=== PATIENT | male | born 1990 | race Caucasian/White ===

== ENCOUNTER 2019-02-11 17:56 | Emergency (ER) | payer SELFPAY ==
--- NOTE | 2019-02-11 18:06 | ER Document Report ---
ED Medical Screen (RME) - General Chief Complaint: Vomiting Stated Complaint: VOMITING Time Seen by Provider: 02/11/19 18:04 Information source: Patient Notes: Patient presents as he has had yellowing of the eyes for the past 3 days. Patient states that he recently has had really dark urine but suspected that he was dehydrated. Patient states that he drank a lot of Pedialyte and now his urine looks normal. Patient states that he is also had vomiting every day for the past 6 weeks only after eating lunch each day. Patient otherwise denies any abdominal pain or fever. Patient denies any nausea at this time. I have greeted and performed a rapid initial assessment of this patient. A comprehensive ED assessment and evaluation of the patient, analysis of test results and completion of the medical decision making process will be conducted by additional ED providers. Physical Exam - General General appearance: Appears well, Alert Notes: Sclera icteric
--- NOTE | 2019-02-11 18:33 | ER Document Report ---
ED General - General Chief Complaint: Eye Problem Stated Complaint: VOMITING Time Seen by Provider: 02/11/19 18:04 Notes: Patient is a 28-year-old male with no significant past medical history that presents to the emergency department for chief complaint of yellowing of his eyes. Patient reports that over the past 3 days his friends and family noticed that his eyes are more yellow than usual. He has no history of liver disease. He does state he has been having nausea and vomiting every day at lunch for the past 6 weeks, without any particular explanation, he denies having any nausea or vomiting at this time. He states he is also had a few episodes of vomiting particularly was out working in the sun. He also noted his urine was darker over the past couple days but he is been drinking more Pedialyte and his urine is yellow now. He denies any abdominal pain or swelling, denies any itching or noticing jaundice of the skin. No other complaints at this time. Past Medical History: Denies chronic medical conditions Past Surgical History: Denies recent or pertinent surgical history Social History: Denies tobacco, alcohol or drug use. Family History: Reviewed and noncontributory for presenting illness Allergies: Reviewed, see documented allergy list. REVIEW OF SYSTEMS: Other than noted above, the 12 point review of systems was reviewed with the patient and were negative, all pertinent findings are included in the HPI. PHYSICAL EXAMINATION: Vital signs reviewed, nursing noted reviewed. GENERAL: Well-appearing, well-nourished and in no acute distress. HEAD: Atraumatic, normocephalic. EYES: Eyes appear normal, extraocular movements intact, mild scleral icterus noted, conjunctiva are normal. ENT: nares patent, oropharynx clear without exudates. Moist mucous membranes. NECK: Normal range of motion, supple without lymphadenopathy LUNGS: Breath sounds clear to auscultation bilaterally and equal. No wheezes rales or rhonchi. HEART: Regular rate and rhythm without murmurs ABDOMEN: Soft, nontender, normoactive bowel sounds. No rebound, guarding, or rigidity. No masses appreciated. No hepatosplenomegaly on exam. EXTREMITIES: Nontender, good range of motion, no pitting or edema. NEUROLOGICAL: No focal neurological deficits. Moves all extremities spontaneously Motor and sensory grossly intact on exam. PSYCH: Normal mood, normal affect. SKIN: Warm, Dry, normal turgor, no rashes or lesions noted on exposed skin, no jaundice. Past Medical History - General Information source: Patient - Social History Smoking Status: Former Smoker Chew tobacco use (# tins/day): Yes Frequency of alcohol use: Social Drug Abuse: None Family History: Reviewed & Not Pertinent Patient has suicidal ideation: No Patient has homicidal ideation: No Physical Exam - Vital signs Vitals: Temp Pulse Resp BP Pulse Ox 98.2 F 73 16 134/80 H 98 02/11/19 18:01 02/11/19 18:01 02/11/19 18:01 02/11/19 18:01 02/11/19 18:01 Course - Re-evaluation Re-evalutation: Patient seen and examined vital signs reviewed. Laboratory data and/or imaging were ordered as appropriate for the patient's presenting symptoms and complaint, with consideration of any critical or life threatening conditions that may be associated with their obtained history and exam as noted above. Patient was treated with IV fluids Results were reviewed when available and demonstrated isolated hyperbilirubinemia of just over 4. Other LFTs are normal, liver ultrasound ordered and hepatitis panel were sent off. 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 Liver ultrasound was negative for any evidence of fatty liver disease, or obstruction. Results were discussed with the patient at this point, after careful consideration I feel that that patient can be discharged from the emergency department, the patient was educated treatments and reasons to return to the emergency department based on their presumed diagnosis as noted above, they were advised to followup with a primary care physician in 2-3 days. Patient was agreeable to plan of care. *Note is created using voice recognition software and may contain spelling, syntax or grammatical errors. Laboratory 02/11/19 02/11/19 02/11/19 18:22 18:57 18:57 WBC 8.6 RBC 5.09 Hgb 15.4 Hct 45.0 MCV 88 MCH 30.2 MCHC 34.2 RDW 13.1 Plt Count 267 Lymph % (Auto) 28.3 [place] % (Auto) 6.8 Eos % (Auto) 1.0 Baso % (Auto) 0.7 Absolute Neuts (auto) 5.5 Absolute Lymphs (auto) 2.4 Absolute Monos (auto) 0.6 Absolute Eos (auto) 0.1 Absolute Basos (auto) 0.1 Seg Neutrophils % 63.2 PT INR APTT Sodium 139.8 Potassium 3.9 Chloride 101 Carbon Dioxide 27 Anion Gap 12 BUN 15 Creatinine 0.96 Est GFR ( Amer) > 60 Est GFR (MDRD) Non-Af > 60 Glucose 70 L Calcium 9.9 Total Bilirubin 4.8 H Direct Bilirubin 0.1 Neonat Total Bilirubin Not Reportable Neonat Direct Bilirubin Not Reportable Neonat Indirect Bili Not Reportable AST 27 ALT 34 Alkaline Phosphatase 52 Total Protein 7.8 Albumin 4.9 Lipase 141.8 Urine Color YELLOW Urine Appearance CLEAR Urine pH 6.0 Ur Specific [place] 1.020 Urine Protein NEGATIVE Urine Glucose (UA) NEGATIVE Urine Ketones TRACE H Urine Blood NEGATIVE Urine Nitrite NEGATIVE Urine Bilirubin NEGATIVE Urine Urobilinogen 2.0 H Ur Leukocyte Esterase NEGATIVE Urine WBC (Auto) 0 Urine RBC (Auto) 2 Urine Mucus (Auto) OCC Urine Ascorbic Acid NEGATIVE 02/11/19 18:57 WBC RBC Hgb Hct MCV MCH MCHC RDW Plt Count Lymph % (Auto) [place] % (Auto) Eos % (Auto) Baso % (Auto) Absolute Neuts (auto) Absolute Lymphs (auto) Absolute Monos (auto) Absolute Eos (auto) Absolute Basos (auto) Seg Neutrophils % PT 12.4 INR 0.92 APTT 28.1 Sodium Potassium Chloride Carbon Dioxide Anion Gap BUN Creatinine Est GFR ( Amer) Est GFR (MDRD) Non-Af Glucose Calcium Total Bilirubin Direct Bilirubin Neonat Total Bilirubin Neonat Direct Bilirubin Neonat Indirect Bili AST ALT Alkaline Phosphatase Total Protein Albumin Lipase Urine Color Urine Appearance Urine pH Ur Specific [place] Urine Protein Urine Glucose (UA) Urine Ketones Urine Blood Urine Nitrite Urine Bilirubin Urine Urobilinogen Ur Leukocyte Esterase Urine WBC (Auto) Urine RBC (Auto) Urine Mucus (Auto) Urine Ascorbic Acid Abdomen Ultrasound 02/11/19 19:32 IMPRESSION: No sonographic abnormality. copyright 2011 [employer]- All Rights Reserved - Vital Signs Vital signs: Temp Pulse Resp BP Pulse Ox 98.2 F 73 16 134/80 H 98 02/11/19 18:01 02/11/19 18:01 02/11/19 18:01 02/11/19 18:01 02/11/19 18:01 - Laboratory Result Diagrams: 02/11/19 18:57 02/11/19 18:57 Laboratory results interpreted by me: 02/11/19 02/11/19 18:22 18:57 Glucose 70 L Total Bilirubin 4.8 H Urine Ketones TRACE H Urine Urobilinogen 2.0 H Discharge - Discharge Clinical Impression: Hyperbilirubinemia Condition: Stable Disposition: HOME, SELF-CARE Additional Instructions: Your one blood test called a bilirubin was elevated today which can cause yellowing of the eyes, your work-up otherwise was negative, you may have a condition called Gilbert syndrome, we did send off hepatitis testing, which if it is positive we will follow-up on. If you have any worsening symptoms such as pain in your right side, worsening vomiting, please return to the emergency department to be reevaluated. Referrals: ZELDA OLEARY MD [ACTIVE STAFF] - Follow up in 3-5 days (primary care ) TESSA ROSAS MD [ACTIVE STAFF] - Follow up in 3-5 days (GI specialist )
[2019-02-11 19:07] LABS: ABSOLUTE BASOPHILS # (AUTO) 0.1 10^3/uL (0.0-0.2); ABSOLUTE EOSINOPHILS # (AUTO) 0.1 10^3/uL (0.0-0.6); ABSOLUTE LYMPHOCYTES (AUTO) 2.4 10^3/uL (0.5-4.7); ABSOLUTE MONOCYTES (AUTO) 0.6 10^3/uL (0.1-1.4); ABSOLUTE NEUT (AUTO) 5.5 10^3/uL (1.7-8.2); BASOPHILS % (AUTO) 0.7 % (0-2); HEMOGLOBIN 15.4 g/dL (13.5-17.0); LYMPHOCYTES % (AUTO) 28.3 % (13-45); MEAN CORPUSCULAR HEMOGLOBIN 30.2 pg (27.0-33.4); MEAN CORPUSCULAR HGB CONC 34.2 g/dL (32.0-36.0); MEAN CORPUSCULAR VOLUME 88 fl (80-97); MONOCYTES % (AUTO) 6.8 % (3-13); PLATELET COUNT 267 10^3/uL (150-450); RED BLOOD COUNT 5.09 10^6/uL (4.35-5.55); RED CELL DISTRIBUTION WIDTH 13.1 % (11.5-14.0); SEGMENTED NEUTROPHILS % (AUTO) 63.2 % (42-78); TOTAL CELLS COUNTED % (AUTO) 100 %; WHITE BLOOD COUNT 8.6 10^3/uL (4.0-10.5)
[2019-02-11 19:08] LABS: APPEARANCE,URINE CLEAR; BILIRUBIN,URINE NEGATIVE (NEGATIVE); COLOR,URINE YELLOW; GLUCOSE, URINE NEGATIVE (NEGATIVE); KETONES,URINE TRACE mg/dL (NEGATIVE); LEUKOCYTE ESTERASE,URINE NEGATIVE (NEGATIVE); NITRITE,URINE NEGATIVE (NEGATIVE); PROTEIN,URINE NEGATIVE (NEGATIVE)
[2019-02-11 19:13] LABS: INTERNATIONAL RATION (INR) 0.92; PROTHROMBIN TIME 12.4 SEC (11.4-15.4)
[2019-02-11] MEDS ORDERED: NORMAL SALINE 1000 ML 1,000 ML IV ONE (19:13)
[2019-02-11 19:14] LABS: PARTIAL THROMBOPLASTIN TIME 28.1 SEC (23.5-35.8)
[2019-02-11 19:28] LABS: ALBUMIN 4.9 g/dL (3.5-5.0); ALKALINE PHOSPHATASE 52 U/L (38-126); ANION GAP 12 (5-19); ASPARTATE AMINO TRANSFERASE 27 U/L (17-59); BILIRUBIN,DIRECT 0.1 mg/dL (0.0-0.4); BILIRUBIN,TOTAL 4.8 mg/dL (0.2-1.3); BLOOD UREA NITROGEN 15 mg/dL (7-20); CALCIUM 9.9 mg/dL (8.4-10.2); CARBON DIOXIDE 27 mmol/L (22-30); CHLORIDE 101 mmol/L (98-107); GLUCOSE 70 mg/dL (75-110); POTASSIUM 3.9 mmol/L (3.6-5.0); TOTAL PROTEIN 7.8 g/dL (6.3-8.2)
--- NOTE | 2019-02-11 20:56 | RADIOLOGY REPORT (SQ) ---
EXAM DESCRIPTION: US ABDOMEN LIMITED COMPLETED DATE/TME: 02/11/2019 19:32 CLINICAL HISTORY: 28 years, Male, vomiting, elevated bilirubin COMPARISON: None. TECHNIQUE: LIMITATIONS: None. FINDINGS: No gallstones. The radiology technologist reported a negative sonographic Yuen sign. No evidence of biliary tree dilatation. The liver, pancreas and right kidney are unremarkable. The abdominal aorta is normal in caliber. IMPRESSION: No sonographic abnormality. copyright 2010 [employer]- All Rights Reserved
[2019-02-11] MEDS ORDERED: ONDANSETRON ODT 4 MG TAB (6 TAB/ER DISP) PO PRN (21:13)
[2019-02-11 21:30] VITALS: BP 125/81
[2019-02-13 08:37] LABS: HEPATITS B SURFACE ANTIGEN Negative (Negative)
[2019-02-13 09:25] LABS: HEPATITIS C VIRUS ANTIBODY <0.1 s/co ratio (0.0-0.9)
== END 2019-02-11 21:31 | disposition home or self-care (01) ==
LOC: ER 17:56
DX: E80.6 Other disorders of bilirubin metabolism (principal); H57.9 Unspecified disorder of eye and adnexa; R11.2 Nausea with vomiting, unspecified
CPT/HCPCS: 99284; 96360; 36415; 83690; 85025; 85610; 85730; 80053; 81001; 80074; 76705; J7030

== ENCOUNTER 2019-07-26 08:10 | Emergency (ER) | payer SELFPAY ==
--- NOTE | 2019-07-26 08:23 | ER Document Report ---
ED General - General Chief Complaint: Flank Pain Stated Complaint: RIGHT FLANK PAIN Time Seen by Provider: 07/26/19 08:23 Primary Care Provider: ZELDA OLEARY MD [ACTIVE STAFF] - Follow up as needed Juan PIRES MD [ACTIVE STAFF] - Follow up as needed - HPI Notes: 29-year-old male with a history of nephrolithiasis and renal syndrome presents emergency room for complaints of right flank pain that started at 8 PM yesterday. Patient states pain comes and goes on the right flank area without radiation. Does report vomiting and nausea but denies any diarrhea. reports he has had 2 other recurrences of kidney stones, states the last time was on his left. Is never been seen by a PCP or book cleaner for this issue. Denies ever requiring surgery. Is not taking any [id number] medications. Denies fevers, chills, chest pain,palpitations, shortness of breath, dyspnea, abdominal pain, hematuria,blurred vision, double vision, loss of vision, speech changes, LH, dizziness, syncope, headaches, wheezing, ST, URI, neck pain, weakness, bowel or bladder dysfunction, saddle anesthesia, numbness or tingling in bilateral upper or lower extremities equally, muscle paralysis, weakness in bilateral upper or lower extremities equally or rash. Past Medical History - General Information source: Patient - Social History Smoking Status: Unknown if Ever Smoked Family History: Reviewed & Not Pertinent Review of Systems - Review of Systems Constitutional: No symptoms reported EENT: No symptoms reported Cardiovascular: No symptoms reported Respiratory: No symptoms reported Gastrointestinal: See HPI Genitourinary: No symptoms reported Male Genitourinary: No symptoms reported Musculoskeletal: No symptoms reported Skin: No symptoms reported Hematologic/Lymphatic: No symptoms reported Neurological/Psychological: No symptoms reported Physical Exam - Vital signs Vitals: Temp Pulse Resp BP Pulse Ox 98.1 F 55 L 16 144/67 H 100 07/26/19 08:14 07/26/19 08:14 07/26/19 08:14 07/26/19 08:14 07/26/19 08:14 - Notes Notes: PHYSICAL EXAMINATION:reviewed vital signs by RN GENERAL: Well-appearing, well-nourished and in no acute distress. HEAD: Atraumatic, normocephalic. EYES: Pupils equal round and reactive to light, extraocular movements intact, sclera anicteric, conjunctiva are normal. ENT: Nares patent, oropharynx clear without exudates. Moist mucous membranes. NECK: Normal range of motion, supple without lymphadenopathy LUNGS: Breath sounds clear to auscultation bilaterally and equal. No wheezes r ales or rhonchi. HEART: Regular rate and rhythm without murmurs ABDOMEN: Soft, nontender, nondistended abdomen. No guarding, no rebound. No masses appreciated. No CVA tenderness appreciated on palpation, no right CVA tenderness on palpation Musculoskeletal: Normal range of motion, no pitting or edema. No cyanosis. NEUROLOGICAL: Cranial nerves grossly intact. Normal speech, normal gait. N ormal sensory, motor exams PSYCH: Normal mood, normal affect. SKIN: Warm, Dry, normal turgor, no rashes or lesions noted. Course - Re-evaluation Re-evalutation: 07/26/19 09:24 Afebrile vital stable no distress. Nurse's notes reviewed. lipase normal. CT abdomen pelvis without contrast shows a small punctuated calculi in the p osterior bladder on the right side, which could represent a nonobstructing ureteral calculi at the UVJ versus a recently passed calculi. CBC negative for leukocytosis or anemia, CMP negative for hepatic or renal dysfunction, no electrolyte disturbances. Urinalysis does show small hematuria with small ketones. Patient is receiving a bag of IV fluids and 30 mg of Toradol IVP. Patient is drinking without any issues. Discussed with patient that he does not require surgery as his renal calculi small enough to pass outpatient with pushing IV fluids, taking Flomax, prophylactic antibiotic and strainer to assess if stone has been passed. Advised to follow-up with primary care provider and book cleaner for further evaluation. After performing a Medical Screening Examination, I estimate there is LOW risk for ACUTE APPENDICITIS, BOWEL OBSTRUCTION, ACUTE CHOLECYSTITIS, PERFORATED DIVERTICULITIS, INCARCERATED HERNIA, PANCREATITIS, TESTICULAR TORSION or PERFORATED ULCER, thus I consider the discharge disposition reasonable. Also, there is no evidence or peritonitis, sepsis, or toxicity. I have reevaluated this patient multiple times and no significant life threatening changes are noted. The patient and I have discussed the diagnosis and risks, and we agree with discharging home with close follow-up with the understanding that symptoms and presentations can change. We also discussed returning to the Emergency Department immediately if new or worsening symptoms occur. We have discussed the symptoms which are most concerning (e.g., bloody stool, fever, changing or worsening pain, intractable vomiting - standard verbal up date) that necessitate immediate return. - Vital Signs Vital signs: Temp Pulse Resp BP Pulse Ox 98.1 F 55 L 16 144/67 H 100 07/26/19 08:14 07/26/19 08:14 07/26/19 08:14 07/26/19 08:14 07/26/19 08:14 - Laboratory Result Diagrams: 07/26/19 08:32 07/26/19 08:32 Laboratory results interpreted by me: 07/26/19 07/26/19 08:32 08:32 Total Bilirubin 4.4 H Albumin 5.1 H Urine Ketones 20 H Urine Blood SMALL H Discharge - Discharge Clinical Impression: Left flank pain, Bladder calculi Condition: Stable Disposition: HOME, SELF-CARE Instructions: Antinausea Medication ([facility]), Kidney Stone ([facility]), Toradol Injection ([facility]) Additional Instructions: Your labs were normal. You were given IV fluids and Toradol for pain while you are in the emergency room today. Your CT abdomen pelvis showed that you have a small punctuated calculi in the posterior aspect of your bladder which means it is already passed through your kidneys and you will likely pass in the near future. Please take Tylenol and ibuprofen for pain control as well as the Flomax and Zofran for nausea and to help open up the ureter to pass a stone. Please use strainer with each void to make sure the stone has passed. Your stone was very small did not need hospitalization or surgery. Please increase your hydration, avoid any dehydrating liquids such as coffee or soda. Please follow-up with primary care provider or book cleaner for further evaluation of your renal calculi. Return immediately for any new or worsening symptoms. Follow up with primary care provider, call tomorrow to make followup appointment. Prescriptions: Tamsulosin HCl [Flomax 0.4 mg Cap.sr] 0.4 mg PO DAILY #7 cap.sr.24h Ondansetron [Zofran Odt 4 mg Tablet] 1 - 2 tab PO Q4H PRN #15 tab.rapdis PRN Reason: For Nausea/Vomiting Forms: Return to Work Referrals: Juan PIRES MD [ACTIVE STAFF] - Follow up as needed ZELDA OLEARY MD [ACTIVE STAFF] - Follow up as needed
[2019-07-26] MEDS ORDERED: NORMAL SALINE 1000 ML 1,000 ML IV ONE (08:35)
[2019-07-26] MEDS ORDERED: KETOROLAC TROMETHAMINE INJ/PF 30 MG/1 ML SDV IV ONE (08:36)
[2019-07-26 08:58] LABS: ABSOLUTE BASOPHILS # (AUTO) 0.1 10^3/uL (0.0-0.2); ABSOLUTE LYMPHOCYTES (AUTO) 1.4 10^3/uL (0.5-4.7); ABSOLUTE MONOCYTES (AUTO) 0.6 10^3/uL (0.1-1.4); ABSOLUTE NEUT (AUTO) 5.1 10^3/uL (1.7-8.2); BASOPHILS % (AUTO) 0.7 % (0-2); EOSINOPHILS % (AUTO) 0.3 % (0-6); HEMATOCRIT 42.8 % (37.9-51.0); HEMOGLOBIN 15.2 g/dL (13.5-17.0); MEAN CORPUSCULAR HEMOGLOBIN 31.3 pg (27.0-33.4); MEAN CORPUSCULAR HGB CONC 35.4 g/dL (32.0-36.0); MEAN CORPUSCULAR VOLUME 88 fl (80-97); MONOCYTES % (AUTO) 8.1 % (3-13); PLATELET COUNT 258 10^3/uL (150-450); RED BLOOD COUNT 4.84 10^6/uL (4.35-5.55); RED CELL DISTRIBUTION WIDTH 13.6 % (11.5-14.0); SEGMENTED NEUTROPHILS % (AUTO) 71.9 % (42-78); TOTAL CELLS COUNTED % (AUTO) 100 %; WHITE BLOOD COUNT 7.1 10^3/uL (4.0-10.5)
[2019-07-26 09:03] LABS: APPEARANCE,URINE SLIGHTLY-CLOUDY; BILIRUBIN,URINE NEGATIVE (NEGATIVE); COLOR,URINE YELLOW; GLUCOSE, URINE NEGATIVE (NEGATIVE); KETONES,URINE 20 mg/dL (NEGATIVE); LEUKOCYTE ESTERASE,URINE NEGATIVE (NEGATIVE); NITRITE,URINE NEGATIVE (NEGATIVE); PROTEIN,URINE NEGATIVE (NEGATIVE); URINE SPECIFIC GRAVITY 1.023; UROBILINOGEN,URINE NEGATIVE mg/dL (<2.0)
--- NOTE | 2019-07-26 09:03 | RADIOLOGY REPORT (SQ) ---
EXAM DESCRIPTION: CT ABD/PELVIS NO ORAL OR IV IMAGES COMPLETED DATE/TIME: 07/26/2019 8:50 am REASON FOR STUDY: R flank pain COMPARISON: None. TECHNIQUE: CT scan of the abdomen and pelvis performed without intravenous or oral contrast. Images reviewed with lung, soft tissue, and bone windows. Reconstructed coronal and sagittal MPR images revi ewed. All images stored on PACS. All CT scanners at this facility use dose modulation, iterative reconstruction, and/or weight based d osing when appropriate to reduce radiation dose to as low as reasonably achievable (ALARA). [facility]: Dose Right [facility]: CareDose [facility]: Dose Right [facility]: Teradose 4D [facility]: Exelonix RADIATION DOSE: CT Rad equipment meets quality standard of care and radiation dose reduction techniq ues were employed. CTDIvol: 5.3 mGy. DLP: 271 mGy-cm.mGy. LIMITATIONS: None. FINDINGS: LOWER CHEST: No significant findings. No nodules or infiltrates. NON-CONTRASTED LIVER, SPLEEN, ADRENALS: Evaluation limited by lack of IV contrast. No identified sign ificant masses. PANCREAS: No masses. No peripancreatic inflammatory changes. GALLBLADDER: No identified stones by CT criteria. No inflammatory changes to suggest cholecystitis. RIGHT KIDNEY AND URETER: No suspicious masses. Assessment limited by lack of IV contrast. 2-3 mm mi d pole calyceal calculus. No hydronephrosis or hydroureter. LEFT KIDNEY AND URETER: No suspicious masses. Assessment limited by lack of IV contrast. Mid pole c alyceal calculi, the largest measuring 4 mm. No hydronephrosis or hydroureter. AORTA AND RETROPERITONEUM: No aneurysm. No retroperitoneal masses or adenopathy. BOWEL AND PERITONEAL CAVITY: No obvious masses or inflammatory changes. No free fluid. APPENDIX: Normal. PELVIS, BLADDER, AND ABDOMINAL WALL:No abnormal masses. No free fluid. Tiny punctate calculus in the region of the posterior bladder on the right side (axial series 3, image 71). BONES: No significant findings. OTHER: No other significant finding. IMPRESSION: 1. TINY PUNCTATE CALCULUS IN THE REGION OF THE POSTERIOR BLADDER ON THE RIGHT SIDE. THIS COULD REPRE SENT A TINY NONOBSTRUCTING CALCULUS AT THE URETERAL VESICULAR JUNCTION VERSUS A RECENTLY PASSED CALCU HECTOR. 2. NONOBSTRUCTING CALYCEAL CALCULI IN BOTH KIDNEYS. 3. NO OTHER SIGNIFICANT OR ACUTE PROCESS IN THE ABDOMEN OR PELVIS. COMMENT: Quality ID # [id number]: Final reports with documentation of one or more dose reduction techniques (e.g., Automated exposure control, adjustment of the mA and/or kV according to patient size, use of iterative reconstruction technique) TECHNICAL DOCUMENTATION: JOB ID: [id number] 2010 [employer]- All Rights Reserved Reading location - IP/workstation name: [facility]
[2019-07-26 09:28] LABS: ALBUMIN 5.1 g/dL (3.5-5.0); ALKALINE PHOSPHATASE 62 U/L (38-126); ANION GAP 8 (5-19); ASPARTATE AMINO TRANSFERASE 30 U/L (17-59); BILIRUBIN,TOTAL 4.4 mg/dL (0.2-1.3); BLOOD UREA NITROGEN 15 mg/dL (7-20); CALCIUM 9.5 mg/dL (8.4-10.2); CARBON DIOXIDE 24 mmol/L (22-30); CHLORIDE 107 mmol/L (98-107); GLUCOSE 96 mg/dL (75-110); POTASSIUM 4.1 mmol/L (3.6-5.0); TOTAL PROTEIN 7.7 g/dL (6.3-8.2)
[2019-07-26 10:08] VITALS: BP 127/69
== END 2019-07-26 10:09 | disposition home or self-care (01) ==
LOC: ER 08:10
DX: N21.0 Calculus in bladder (principal); R10.9 Unspecified abdominal pain
CPT/HCPCS: 99284; 96361; 96374; 36415; 83690; 85025; 80053; 81001; 74176; J1885; J7030

== ENCOUNTER 2020-01-21 06:29 | Emergency (ER) | payer SELFPAY ==
[2020-01-21 06:49] VITALS: BP 112/54
[2020-01-21 08:43] LABS: HEMATOCRIT 44.6 % (37.9-51.0); HEMOGLOBIN 15.6 g/dL (13.5-17.0); MEAN CORPUSCULAR HEMOGLOBIN 30.6 pg (27.0-33.4); MEAN CORPUSCULAR HGB CONC 34.8 g/dL (32.0-36.0); MEAN CORPUSCULAR VOLUME 88 fl (80-97); PLATELET COUNT 275 10^3/uL (150-450); RED BLOOD COUNT 5.08 10^6/uL (4.35-5.55); RED CELL DISTRIBUTION WIDTH 13.6 % (11.5-14.0); WHITE BLOOD COUNT 18.9 10^3/uL (4.0-10.5)
[2020-01-21 09:00] LABS: ALBUMIN 4.9 g/dL (3.5-5.0); ALKALINE PHOSPHATASE 67 U/L (38-126); ANION GAP 13 (5-19); ASPARTATE AMINO TRANSFERASE 32 U/L (17-59); BILIRUBIN,DIRECT 0.3 mg/dL (0.0-0.4); BILIRUBIN,TOTAL 1.9 mg/dL (0.2-1.3); BLOOD UREA NITROGEN 19 mg/dL (7-20); CALCIUM 9.7 mg/dL (8.4-10.2); CARBON DIOXIDE 27 mmol/L (22-30); CHLORIDE 102 mmol/L (98-107); GLUCOSE 124 mg/dL (75-110); POTASSIUM 4.6 mmol/L (3.6-5.0); TOTAL PROTEIN 7.5 g/dL (6.3-8.2)
[2020-01-21 09:09] LABS: ABSOLUTE LYMPHOCYTES# (MANUAL) 0.4 10^3/uL (0.5-4.7); ABSOLUTE MONOCYTES # (MANUAL) 0.6 10^3/uL (0.1-1.4); BAND NEUTROPHILS % (MANUAL) 1 % (3-5); BASOPHILS % (MANUAL) 0 % (0-2); EOSINOPHILS % (MANUAL) 0 % (0-6); LYMPHOCYTES % (MANUAL) 2 % (13-45); MONOCYTES % (MANUAL) 3 % (3-13); SEGMENTED NEUTROPHILS % (MAN) 94 % (42-78); TOTAL CELLS COUNTED 100
[2020-01-21 09:10] LABS: PLATELET COMMENT ADEQUATE; RBC MORPHOLOGY COMMENT NORMO-CYTIC/CHROMIC
--- NOTE | 2020-01-21 10:38 | ER Document Report ---
ED General - General Chief Complaint: Possible Kidney Stone Stated Complaint: POSSIBLE KIDNEY STONE Time Seen by Provider: 01/21/20 09:08 Information source: Patient - HPI Notes: I went in to see patient. Before I could ask any questions or begin my exam the patient stated that he wants to leave because he has been waiting too long. I apologized for the wait and told patient I could see and examine him now and offered to give him pain medications and treat his condition. Patient refused and stated that he wanted to leave and did not want any type of physical exam or treatment rendered. Patient was of sound mind and capable of making his own judgments. Patient signed an AGAINST MEDICAL ADVICE form. - Related Data Allergies/Adverse Reactions: No Known Allergies Allergy (Unverified 01/21/20 07:10) Past Medical History - Social History Smoking Status: Never Smoker Frequency of alcohol use: None Drug Abuse: None Family History: Reviewed & Not Pertinent Patient has homicidal ideation: No Renal/ Medical History: Reports: Hx Kidney Stones Physical Exam - Vital signs Vitals: Temp Pulse Resp BP Pulse Ox 98.7 F 55 L 18 112/54 L 100 01/21/20 06:48 01/21/20 06:48 01/21/20 06:48 01/21/20 06:48 01/21/20 06:48 Course - Vital Signs Vital signs: Temp Pulse Resp BP Pulse Ox 98.7 F 55 L 18 112/54 L 100 01/21/20 06:48 01/21/20 06:48 01/21/20 06:48 01/21/20 06:48 01/21/20 06:48 - Laboratory Result Diagrams: 01/21/20 08:11 01/21/20 08:11 Laboratory results interpreted by me: 01/21/20 01/21/20 08:11 08:11 WBC 18.9 H Seg Neuts % (Manual) 94 H Band Neutrophils % 1 L Lymphocytes % (Manual) 2 L Abs Neuts (Manual) 18.0 H Abs Lymphs (Manual) 0.4 L Creatinine 1.37 H Glucose 124 H Total Bilirubin 1.9 H Discharge - Discharge Clinical Impression: Left against medical advice Condition: Stable Disposition: AGAINST MEDICAL ADVICE Instructions: Kidney Stone ([facility]) Additional Instructions: You are welcome to return at any time. You are leaving AGAINST MEDICAL ADVICE. I did not have a chance to perform an adequate history and physical exam therefore you could have medical conditions that could result in or permanent disability such as infections cancer or other undiagnosed problems. Please seek the attention of a medical provider soon as possible see you can have a thorough exam. Referrals: STEWART VICTORIA MD [NO LOCAL MD] - Follow up as needed
== END 2020-01-21 10:12 | disposition left against medical advice (07) ==
LOC: ER 06:29
DX: Z71.1 Person with feared health complaint in whom no diagnosis is made (principal); Z87.442 Personal history of urinary calculi; Z53.29 Procedure and treatment not carried out because of patient's decision for other reasons
CPT/HCPCS: 36415; 80053; 83690; 85025; 99282